=== PATIENT | female | born 1965 | race Native Hawaiian/Other Pacific Islander ===

== ENCOUNTER 2018-10-19 13:10 | Observation (INO) | payer OTHER, SELFPAY ==
--- NOTE | 2018-10-19 13:21 | Emergency Department Report ---
Blank Doc - Documentation Documentation: 53 y o female with new onset dx of DM was sent to ED from clinic today due antonina vated BP and chest pain NOT TAking any meds BP was 220/113 in clinic 185/95 in triage LAbs,ekg,cxr ACC eval
--- NOTE | 2018-10-19 14:15 | XRay Report ---
AP CHEST: HISTORY: chest pain AP view of the chest demonstrates a normal mediastinal and cardiac contour with clear lungs and normal bony and soft tissue structures. IMPRESSION: Unremarkable AP chest.
[2018-10-19 14:22] LABS: Basophils # (Auto) 0.1 K/mm3 (0.0-0.1); Basophils % (Auto) 0.6 % (0.0-1.8); Eosinophils # (Auto) 0.2 K/mm3 (0.0-0.4); Eosinophils % (Auto) 1.6 % (0.0-4.3); Hematocrit 43.4 % (30.3-42.9); Hemoglobin 14.9 gm/dl (10.1-14.3); Lymphocytes # (Auto) 3.9 K/mm3 (1.2-5.4); Mean Corpuscular HGB Conc 34 % (30-34); Mean Corpuscular Volume 89 fl (79-97); Monocytes # (Auto) 0.9 K/mm3 (0.0-0.8); Monocytes % (Auto) 7.9 % (0.0-7.3); Platelet Count 267 K/mm3 (140-440); Red Blood Count 4.89 M/mm3 (3.65-5.03)
[2018-10-19 14:40] LABS: BUN/Creatinine Ratio 27; Blood Urea Nitrogen 16 mg/dL (7-17); Calcium 9.7 mg/dL (8.4-10.2); Hemolysis Index 7
[2018-10-19] MEDS ORDERED: MORPHINE IV ONE (15:20)
[2018-10-19] MEDS ORDERED: TORADOL IV ONE (15:20)
[2018-10-19] MEDS ORDERED: PEPCID IV ONE (15:58)
[2018-10-19] MEDS ORDERED: ZOFRAN IV ONE (15:58)
[2018-10-19] MEDS ORDERED: NACL 0.9% 1000 ML 1,000 ML IV ONE (16:01)
[2018-10-19] MEDS ORDERED: PROTONIX PO ONE (16:02)
--- NOTE | 2018-10-19 16:02 | Emergency Department Report ---
ED Chest Pain HPI - General Chief Complaint: High BP Stated Complaint: HBP Time Seen by Provider: 10/19/18 13:18 Source: patient, family Mode of arrival: Ambulatory Limitations: Language Barrier - History of Present Illness Initial Comments: Patient is a 53-year-old female who has a history of hypertension diabetes both of which have been untreated who is presenting with chest pain. 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 Patient's family state that she has had chest pressure with some mild shortness of breath for the past 2 day s. Patient also has a history of chronic back pain which has been bothering her as well. Patient recently went to a chiropractor which did not help her symptoms. Patient describes the chest discomfort as a tight sensation in the chest. Patient has had several episodes of nausea and vomiting for the past 2 days as well. Other Symptoms: other (mid back pain). denies: acid taste in mouth, leg swelling, palpitations, burping - Related Data Allergies Allergy/AdvReac Type Severity Reaction Status Date / Time No Known Allergies Allergy Verified 10/19/18 13:20 Heart Score - HEART Score History: Moderately suspicious EKG: Non-specific Age: 45-65 Risk factors: 1-2 risk factors Troponin: < normal limit HEART Score: 4 ED Review of Systems ROS: Stated complaint: HBP Other details as noted in HPI Comment: All other systems reviewed and negative ED Past Medical Hx - Past Medical History Previous Medical History?: No - Surgical History Past Surgical History?: Yes Additional Surgical History: c-sections - Social History Smoking Status: Never Smoker ED Physical Exam - General Limitations: Language Barrier General appearance: alert, in distress (patient appears uncomfortable and is pacing in the room) - Head Head exam: Present: atraumatic, normocephalic - Eye Eye exam: Present: normal appearance, PERRL, EOMI - ENT ENT exam: Present: mucous membranes moist - Neck Neck exam: Present: normal inspection - Respiratory Respiratory exam: Present: normal lung sounds bilaterally. Absent: respiratory distress, wheezes, rales, rhonchi, stridor - Cardiovascular Cardiovascular Exam: Present: regular rate, normal rhythm. Absent: systolic murmur, diastolic murmur, rubs, gallop - GI/Abdominal GI/Abdominal exam: Present: soft, normal bowel sounds - Extremities Exam Extremities exam: Present: normal inspection - Back Exam Back exam: Present: normal inspection - Neurological Exam Neurological exam: Present: alert, oriented X3 - Psychiatric Psychiatric exam: Present: normal affect, normal mood - Skin Skin exam: Present: warm, dry, intact, normal color. Absent: rash ED Course Vital Signs 10/19/18 13:18 Temperature 98.8 F Pulse Rate 94 H Respiratory 18 Rate Blood Pressure 185/96 O2 Sat by Pulse 98 Oximetry CHIDI score - Chidi Score Age > 65: (0) No Aspirin use within the Past 7 Days: (0) No 3 or more CAD Risk Factors: (1) Yes 2 or more Angina events in past 24 hrs: (1) Yes Known CAD with more than 50% Stenosis: (0) No Elevated Cardiac Markers: (0) No ST Deviation Greater than 0.5mm: (0) No CHIDI Score: 2 ED Medical Decision Making - Lab Data Result diagrams: 10/19/18 13:58 10/19/18 13:58 Lab Results 10/19/18 10/19/18 Range/Units 13:58 13:58 WBC 11.7 H (4.5-11.0) K/mm3 RBC 4.89 (3.65-5.03) M/mm3 Hgb 14.9 H (10.1-14.3) gm/dl Hct 43.4 H (30.3-42.9) % MCV 89 (79-97) fl MCH 30 (28-32) pg MCHC 34 (30-34) % RDW 14.0 (13.2-15.2) % Plt Count 267 (140-440) K/mm3 Lymph % (Auto) 33.0 (13.4-35.0) % [place] % (Auto) 7.9 H (0.0-7.3) % Eos % (Auto) 1.6 (0.0-4.3) % Baso % (Auto) 0.6 (0.0-1.8) % Lymph # 3.9 (1.2-5.4) K/mm3 [place] # 0.9 H (0.0-0.8) K/mm3 Eos # 0.2 (0.0-0.4) K/mm3 Baso # 0.1 (0.0-0.1) K/mm3 Seg Neutrophils % 56.9 (40.0-70.0) % Seg Neutrophils # 6.7 (1.8-7.7) K/mm3 Sodium 129 L (137-145) mmol/L Potassium 4.0 (3.6-5.0) mmol/L Chloride 90.8 L (98-107) mmol/L Carbon Dioxide 27 (22-30) mmol/L Anion Gap 15 mmol/L BUN 16 (7-17) mg/dL Creatinine 0.6 L (0.7-1.2) mg/dL Estimated GFR > 60 ml/min BUN/Creatinine Ratio 27 % Glucose 244 H (65-100) mg/dL Calcium 9.7 (8.4-10.2) mg/dL Troponin T < 0.010 (0.00-0.029) ng/mL - EKG Data -: EKG Interpreted by Me EKG shows normal: sinus rhythm, axis, intervals, QRS complexes, ST-T waves Rate: normal - EKG Data Interpretation: normal EKG - Radiology Data Radiology results: report reviewed (CXR WNL) - Medical Decision Making Patient is a 53-year-old asthmatic female said untreated hypertension in diabetes. Patient was first diagnosed with diabetes barking 5 years ago but never received any type of treatment. Patient was sent in from a clinic because her blood pressure was 220/110. Patient has a negative troponin during her initial evaluation however her heart score is a 4. Patient does meet criteria for admission for further cardiac workup. She admitted to the hospitalist service at this time. Critical Care Time: Yes (30) Critical care attestation.: If time is entered above; I have spent that time in minutes in the direct care of this critically ill patient, excluding procedure time. ED Disposition Clinical Impression: Chest pain, Hypertensive urgency, malignant Disposition: DC-09 OP ADMIT IP TO THIS HOSP Is pt being admited?: Yes Does the pt Need Aspirin: No Condition: Stable Instructions: Chest Pain (ED) Referrals: ANDRA GLEASON MD [Primary Care Provider] - 3-5 Days Time of Disposition: 16:03
[2018-10-20] MEDS ORDERED: APRESOLINE IV PRN (02:54)
[2018-10-20] MEDS ORDERED: MORPHINE IV PRN (02:54)
[2018-10-20] MEDS ORDERED: SODIUM CHLORIDE FLUSH SYRINGE 10 ML IV PRN (05:32)
[2018-10-20] MEDS ORDERED: TYLENOL PO PRN (05:32)
--- NOTE | 2018-10-20 05:42 | History and Physical Report ---
History of Present Illness Date of examination: 10/19/18 Date of admission: 10/19/18 16:15 Chief complaint: Chest pain for 2 days History of present illness: 53-year-old female with history of hypertension and diabetes, noncompliant with some medications comes in for chest pain of 2 days duration. Chest pain is intermittent and about 6 on a scale of 1-10. Dull to sharp in nature. No exacerbating or precipitating factors. No diaphoresis or palpitations or shortness of breath. Patient also has history of chronic back pain for which she has been going to chiropractor but no improvement in her symptoms. No reflux symptoms CHIDI score 3 or more CAD Risk Factors: (1) Yes 2 or more Angina events in past 24 hrs: (1) Yes Total 2 - Chidi Score Age > 65: (0) No Aspirin use within the Past 7 Days: (0) No 3 or more CAD Risk Factors: (1) Yes 2 or more Angina events in past 24 hrs: (1) Yes Known CAD with more than 50% Stenosis: (0) No Elevated Cardiac Markers: (0) No ST Deviation Greater than 0.5mm: (0) No CHIDI Score: 2 Past Medical History Hypertension Diabetes Surgical History Past Surgical History?: Yes Additional Surgical History: c-sections Social History Smoking Status: Never Smoker Family history Htn Review of Systems ROS: Stated complaint: HBP Other details as noted in HPI Comment: All other systems reviewed and negative Medications and Allergies Allergies Allergy/AdvReac Type Severity Reaction Status Date / Time No Known Allergies Allergy Verified 10/19/18 13:20 Home Medications Medication Instructions Recorded Confirmed Last Taken Type No Known Home Medications [No 10/20/18 10/20/18 Unknown History Reported Home Medications] Active Meds: Active Medications Acetaminophen (Tylenol) 650 mg PO Q4H PRN PRN Reason: Pain MILD(1-3)/Fever >100.5/HARO Famotidine (Pepcid) 20 mg PO BID DARIANA Hydralazine HCl (Apresoline) 10 mg IV Q4H PRN PRN Reason: Hypertension Last Admin: 10/20/18 03:34 Dose: 10 mg Documented by: Sodium Chloride (Nacl 0.9% 1000 Ml) 1,000 mls @ 75 mls/hr IV DIRECT DARIANA Insulin Human Lispro (Humalog) 0 unit SUB-Q ACHS DARIANA; Protocol Morphine Sulfate (Morphine) 2 mg IV Q6H PRN PRN Reason: Pain, Moderate (4-6) Last Admin: 10/20/18 03:34 Dose: 2 mg Documented by: Ondansetron HCl (Zofran) 4 mg IV Q8H PRN PRN Reason: Nausea And Vomiting Oxycodone/Acetaminophen (Percocet 5/325) 1 tab PO Q6H PRN PRN Reason: Pain, Moderate (4-6) Sodium Chloride (Sodium Chloride Flush Syringe 10 Ml) 10 ml IV BID DARIANA Sodium Chloride (Sodium Chloride Flush Syringe 10 Ml) 10 ml IV PRN PRN PRN Reason: LINE FLUSH Exam - Constitutional Vitals: Temp Pulse Resp BP Pulse Ox 98.0 F 83 18 134/71 97 10/20/18 04:57 10/20/18 04:57 10/20/18 04:57 10/20/18 04:57 10/20/18 04:57 General appearance: Present: no acute distress, well-nourished - EENT Eyes: Present: PERRL ENT: hearing intact, clear oral mucosa - Neck Neck: Present: supple, normal ROM - Respiratory Respiratory effort: normal Respiratory: bilateral: CTA - Cardiovascular Heart rate: 78 Rhythm: regular Heart Sounds: Present: S1 & S2. Absent: rub, click - Extremities Extremities: no ischemia, pulses intact, pulses symmetrical, No edema Peripheral Pulses: within normal limits - Abdominal General gastrointestinal: Present: soft, non-tender, non-distended, normal bowel sounds Female genitourinary: Present: normal - Rectal Rectal Exam: deferred - Integumentary Integumentary: Present: clear, warm, dry - Musculoskeletal Musculoskeletal: gait normal, strength equal bilaterally - Psychiatric Psychiatric: appropriate mood/affect, intact judgment & insight - Neurologic Neurologic: CNII-XII intact, moves all extremities - Allied Health Allied health notes reviewed: nursing, case management Results - Labs CBC & Chem 7: 10/19/18 13:58 10/19/18 13:58 Labs: Laboratory Last Values WBC 11.7 K/mm3 (4.5-11.0) H 10/19/18 13:58 RBC 4.89 M/mm3 (3.65-5.03) 10/19/18 13:58 Hgb 14.9 gm/dl (10.1-14.3) H 10/19/18 13:58 Hct 43.4 % (30.3-42.9) H 10/19/18 13:58 MCV 89 fl (79-97) 10/19/18 13:58 MCH 30 pg (28-32) 10/19/18 13:58 MCHC 34 % (30-34) 10/19/18 13:58 RDW 14.0 % (13.2-15.2) 10/19/18 13:58 Plt Count 267 K/mm3 (140-440) 10/19/18 13:58 Lymph % (Auto) 33.0 % (13.4-35.0) 10/19/18 13:58 [place] % (Auto) 7.9 % (0.0-7.3) H 10/19/18 13:58 Eos % (Auto) 1.6 % (0.0-4.3) 10/19/18 13:58 Baso % (Auto) 0.6 % (0.0-1.8) 10/19/18 13:58 Lymph # 3.9 K/mm3 (1.2-5.4) 10/19/18 13:58 [place] # 0.9 K/mm3 (0.0-0.8) H 10/19/18 13:58 Eos # 0.2 K/mm3 (0.0-0.4) 10/19/18 13:58 Baso # 0.1 K/mm3 (0.0-0.1) 10/19/18 13:58 Seg Neutrophils % 56.9 % (40.0-70.0) 10/19/18 13:58 Seg Neutrophils # 6.7 K/mm3 (1.8-7.7) 10/19/18 13:58 351.37 ng/mlDDU (0-234) H 10/19/18 15:54 Sodium 129 mmol/L (137-145) L 10/19/18 13:58 Potassium 4.0 mmol/L (3.6-5.0) 10/19/18 13:58 Chloride 90.8 mmol/L (98-107) L 10/19/18 13:58 Carbon Dioxide 27 mmol/L (22-30) 10/19/18 13:58 15 mmol/L 10/19/18 13:58 BUN 16 mg/dL (7-17) 10/19/18 13:58 0.6 mg/dL (0.7-1.2) L 10/19/18 13:58 Estimated GFR > 60 ml/min 10/19/18 13:58 27 % 10/19/18 13:58 Glucose 244 mg/dL (65-100) H 10/19/18 13:58 Calcium 9.7 mg/dL (8.4-10.2) 10/19/18 13:58 < 0.010 ng/mL (0.00-0.029) 10/19/18 19:30 - Imaging and Cardiology EKG: report reviewed Chest x-ray: report reviewed (NAF) Imaging and Cardiology: EKG Data EKG Interpreted by Me EKG shows normal: sinus rhythm, axis, intervals, QRS complexes, ST-T waves Rate: normal EKG Data Interpretation: normal EKG Assessment and Plan Advance Directives: Yes (Full code) VTE prophylaxis?: Chemical Plan of care discussed with patient/family: Yes - Patient Problems (1) Hypertensive urgency, malignant Current Visit: Yes Status: Acute Plan to address problem: Patient initiated on losartan and amlodipine IV hydralazine given Hydralazine IV when necessary every 3 hours for systolic more than 160 and diastolic more than 100. (2) Hyponatremia Current Visit: Yes Status: Acute Plan to address problem: IV normal saline for now Repeat sodium levels (3) Chest pain Current Visit: Yes Status: Acute Qualifiers: Chest pain type: unspecified Qualified Code(s): R07.9 - Chest pain, unspecified Plan to address problem: Chest pain and rule out [place] protocol Serial troponins Exercise stress test in the morning GERD in the differential diagnosis (4) Type 2 diabetes mellitus Current Visit: Yes Status: Chronic Qualifiers: Diabetes mellitus long winder tender insulin use: without assisted use Plan to address problem: Patient initiated on metformin and glimepiride 1 mg by mouth daily Primary team to teach her about diabetes and the importance of compliance (5) DVT prophylaxis Current Visit: Yes Status: Acute Plan to address problem: On Lovenox and GI prophylaxis
[2018-10-20] MEDS: COZAAR PO SCH ×2 (06:11→12:53)
[2018-10-20] MEDS: AMARYL PO SCH (08:01)
[2018-10-20] MEDS: HumaLOG SUB-Q SCH ×4 (08:01→22:23)
[2018-10-20] MEDS: GLUCOPHAGE PO SCH ×2 (08:01→18:12)
[2018-10-20] MEDS ORDERED: LEXISCAN IV ONE ×2 (11:12→11:19)
[2018-10-20] MEDS: ZOFRAN IV PRN ×2 (11:41→13:08)
[2018-10-20] MEDS ORDERED: ZOFRAN ONE (11:41)
--- NOTE | 2018-10-20 11:50 | Progress Note ---
Assessment and Plan Assessment and plan: Chest pain. Continue chest pain protocol. EKG and cardiac isoenzymes are negative. Follow-up Lexiscan results. Also given her complaints of associated back pain and elevated d-dimer, we will obtain CT of the chest. Elevated d-dimer. As above. Type 2 diabetes mellitus. Patient initiated on metformin and glimepiride 1 mg by mouth daily Hyponatremia. Continue IV fluid hydration with normal saline. History Interval history: 53-year-old female with history of hypertension and diabetes, noncompliant with some medications comes in for chest pain of 2 days duration. Chest pain is intermittent and about 6 on a scale of 1-10. Dull to sharp in nature. No exacerbating or precipitating factors. No diaphoresis or palpitations or shortness of breath. Patient also has history of chronic back pain for which she has been going to chiropractor but no improvement in her symptoms. No reflux symptoms No new issues overnight. Hospitalist Physical - Constitutional Vitals: Temp Pulse Resp BP Pulse Ox 97.7 F 81 14 126/63 97 10/20/18 08:21 10/20/18 10:00 10/20/18 08:21 10/20/18 08:21 10/20/18 08:21 General appearance: Present: no acute distress, well-nourished - EENT Eyes: Present: PERRL, EOM intact ENT: hearing intact, clear oral mucosa, dentition normal - Neck Neck: Present: supple, normal ROM - Respiratory Respiratory effort: normal Respiratory: bilateral: CTA - Cardiovascular Rhythm: regular Heart Sounds: Present: S1 & S2. Absent: gallop, rub - Extremities Extremities: no ischemia, No edema, Full ROM - Abdominal General gastrointestinal: soft, non-tender, non-distended, normal bowel sounds - Integumentary Integumentary: Present: clear, warm, dry - Neurologic Neurologic: CNII-XII intact, moves all extremities Results - Labs CBC & Chem 7: 10/19/18 13:58 10/19/18 13:58 Labs: Laboratory Last Values WBC 11.7 K/mm3 (4.5-11.0) H 10/19/18 13:58 RBC 4.89 M/mm3 (3.65-5.03) 10/19/18 13:58 Hgb 14.9 gm/dl (10.1-14.3) H 10/19/18 13:58 Hct 43.4 % (30.3-42.9) H 10/19/18 13:58 MCV 89 fl (79-97) 10/19/18 13:58 MCH 30 pg (28-32) 10/19/18 13:58 MCHC 34 % (30-34) 10/19/18 13:58 RDW 14.0 % (13.2-15.2) 10/19/18 13:58 Plt Count 267 K/mm3 (140-440) 10/19/18 13:58 Lymph % (Auto) 33.0 % (13.4-35.0) 10/19/18 13:58 [place] % (Auto) 7.9 % (0.0-7.3) H 10/19/18 13:58 Eos % (Auto) 1.6 % (0.0-4.3) 10/19/18 13:58 Baso % (Auto) 0.6 % (0.0-1.8) 10/19/18 13:58 Lymph # 3.9 K/mm3 (1.2-5.4) 10/19/18 13:58 Keith # 0.9 K/mm3 (0.0-0.8) H 10/19/18 13:58 Eos # 0.2 K/mm3 (0.0-0.4) 10/19/18 13:58 Baso # 0.1 K/mm3 (0.0-0.1) 10/19/18 13:58 Seg Neutrophils % 56.9 % (40.0-70.0) 10/19/18 13:58 Seg Neutrophils # 6.7 K/mm3 (1.8-7.7) 10/19/18 13:58 351.37 ng/mlDDU (0-234) H 10/19/18 15:54 Sodium 129 mmol/L (137-145) L 10/19/18 13:58 Potassium 4.0 mmol/L (3.6-5.0) 10/19/18 13:58 Chloride 90.8 mmol/L (98-107) L 10/19/18 13:58 Carbon Dioxide 27 mmol/L (22-30) 10/19/18 13:58 15 mmol/L 10/19/18 13:58 BUN 16 mg/dL (7-17) 10/19/18 13:58 0.6 mg/dL (0.7-1.2) L 10/19/18 13:58 Estimated GFR > 60 ml/min 10/19/18 13:58 27 % 10/19/18 13:58 Glucose 244 mg/dL (65-100) H 10/19/18 13:58 9.5 % (4-6) H 10/20/18 06:58 Calcium 9.7 mg/dL (8.4-10.2) 10/19/18 13:58 < 0.010 ng/mL (0.00-0.029) 10/20/18 06:58 Active Medications - Current Medications Current Medications: Generic Name Dose Route Start Last Admin Trade Name Freq PRN Reason Stop Dose Admin Acetaminophen 650 mg 10/20/18 05:32 Tylenol PO Q4H PRN Pain MILD(1-3)/Fever >100.5/HARO Amlodipine Besylate 10 mg 10/20/18 10:00 Norvasc PO QDAY [facility] Famotidine 20 mg 10/20/18 10:00 Pepcid PO BID DARIANA Glimepiride 1 mg 10/20/18 08:00 10/20/18 08:01 Amaryl PO Not Given QDDIAB [facility] Hydralazine HCl 10 mg 10/20/18 02:54 10/20/18 03:34 Apresoline IV 10 mg Q4H PRN Administration Hypertension Sodium Chloride 1,000 mls @ 75 mls/hr 10/20/18 06:00 Nacl 0.9% 1000 Ml IV DIRECT [facility] Insulin Human Lispro 0 unit 10/20/18 07:30 10/20/18 08:01 Humalog SUB-Q Not Given ACHS [facility] Protocol Losartan Potassium 100 mg 10/20/18 06:00 10/20/18 06:11 Cozaar PO 100 mg QDAY DARIANA Administration Metformin HCl 500 mg 10/20/18 08:00 10/20/18 08:01 Glucophage PO Not Given BIDDIAB [facility] Morphine Sulfate 2 mg 10/20/18 02:54 10/20/18 03:34 Morphine IV 2 mg Q6H PRN Administration Pain, Moderate (4-6) Ondansetron HCl 4 mg 10/20/18 05:32 10/20/18 11:41 Zofran IV 4 mg Q8H PRN Administration Nausea And Vomiting Oxycodone/Acetaminophen 1 tab 10/20/18 05:32 Percocet 5/325 PO Q6H PRN Pain, Moderate (4-6) Sodium Chloride 10 ml 10/20/18 10:00 Sodium Chloride Flush Syringe 10 Ml IV BID DARIANA Sodium Chloride 10 ml 10/20/18 05:32 Sodium Chloride Flush Syringe 10 Ml IV PRN PRN LINE FLUSH
[2018-10-20] MEDS: NORVASC PO SCH (12:54)
[2018-10-20] MEDS: PEPCID PO SCH ×2 (12:55→22:22)
[2018-10-20] MEDS: SODIUM CHLORIDE FLUSH SYRINGE 10 ML IV SCH (12:55)
[2018-10-20] MEDS: NACL 0.9% 1000 ML 1,000 ML IV SCH (12:56)
--- NOTE | 2018-10-20 19:55 | Cat Scan Report ---
PROCEDURE: CT ANGIO CHEST TECHNIQUE: Computerized tomographic angiography of the chest was performed after the IV injection of iodinated nonionic contrast including image processing. The image data was postprocessed using 2-di mensional multiplanar reformatted (MPR) and 3-dimensional (MIP and/or volume rendered) techniques. Au tomated exposure control, adjustment of mA and/or kV according to patient size, or iterative reconstr uction dose optimization techniques were utilized. CT DOSE LENGTH PRODUCT: 392.3 mGycm HISTORY: elevated d-dimer COMPARISONS: None . FINDINGS: Heart and pericardium: Normal. Thoracic aorta: Normal. Pulmonary vasculature: Normal. Lymph nodes: No enlarged thoracic lymph nodes. Lungs: Normal. Pleural space: No effusion, thickening, or pneumothorax. Musculoskeletal structures: No significant abnormality. Upper abdominal structures: No significant abnormality. IMPRESSION: No acute abnormality identified. No CT evidence for acute pulmonary embolus. This document is electronically signed by Shar Victor MD., October 20 2018 07:53:31 PM ET
[2018-10-20] MEDS: PERCOCET 5/325 PO PRN (22:22)
[2018-10-21] MEDS: SODIUM CHLORIDE FLUSH SYRINGE 10 ML IV SCH ×2 (01:49→09:40)
[2018-10-21] MEDS: NACL 0.9% 1000 ML 1,000 ML IV SCH (03:29)
[2018-10-21 06:27] LABS: Basophils # (Auto) 0.1 K/mm3 (0.0-0.1); Basophils % (Auto) 0.8 % (0.0-1.8); Eosinophils # (Auto) 0.2 K/mm3 (0.0-0.4); Eosinophils % (Auto) 2.6 % (0.0-4.3); Hematocrit 39.6 % (30.3-42.9); Hemoglobin 13.8 gm/dl (10.1-14.3); Lymphocytes # (Auto) 2.9 K/mm3 (1.2-5.4); Lymphocytes % (Auto) 29.5 % (13.4-35.0); Mean Corpuscular HGB Conc 35 % (30-34); Mean Corpuscular Volume 89 fl (79-97); Monocytes # (Auto) 0.8 K/mm3 (0.0-0.8); Monocytes % (Auto) 8.7 % (0.0-7.3); Platelet Count 225 K/mm3 (140-440); Red Blood Count 4.44 M/mm3 (3.65-5.03); Red Cell Distribution Width 13.9 % (13.2-15.2)
[2018-10-21 06:49] LABS: Alanine Aminotransferase 43 units/L (7-56); Albumin 3.7 g/dL (3.9-5); BUN/Creatinine Ratio 34; Blood Urea Nitrogen 17 mg/dL (7-17); Calcium 9.3 mg/dL (8.4-10.2); Hemolysis Index 7
[2018-10-21] MEDS: PERCOCET 5/325 PO PRN (08:24)
[2018-10-21] MEDS: HumaLOG SUB-Q SCH (08:25)
--- NOTE | 2018-10-21 09:04 | Discharge Summary ---
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 Chest pain was intermittent and about 6 on a scale of 1-10. Dull to sharp in nature. No exacerbating or precipitating factors. No diaphoresis or palpitations or shortness of breath. Patient also has history of chronic back pain for which she has been going to chiropractor but no improvement in her symptoms. No reflux symptoms. The patient was admitted with diagnosis of chest pain, hyponatremia, accelerated hypertension and uncontrolled diabetes mellitus type 2. Patient was placed on the chest pain protocol and was noted to have negative cardiac isoenzymes and EKG. Patient was noted to have elevated d-dimer and underwent CT of the chest that was found to be negative for PE with no other acute findings. Myocardial perfusion scan was negative for ischemia. Etiology of chest pain likely related to GERD. Dedicated discharge time 32 minutes. Disposition: - TO HOME OR SELFCARE Time spent for discharge: 32 - Discharge Diagnoses (1) Chest pain Status: Acute Qualifiers: Chest pain type: unspecified Qualified Code(s): R07.9 - Chest pain, unspecified (2) Hypertensive urgency, malignant Status: Acute (3) Hyponatremia Status: Acute (4) Type 2 diabetes mellitus Status: Chronic Qualifiers: Diabetes mellitus group home insulin use: without group home use Core Measure Documentation - Palliative Care Palliative Care/ Comfort Measures: Not Applicable - Core Measures Any of the following diagnoses?: none Exam - Constitutional Vitals: Temp Pulse Resp BP Pulse Ox 97.5 F L 72 18 171/73 98 10/21/18 04:30 10/21/18 04:29 10/21/18 04:29 10/21/18 04:29 10/21/18 04:29 General appearance: Present: no acute distress, well-nourished - EENT Eyes: Present: PERRL ENT: hearing intact, clear oral mucosa - Neck Neck: Present: supple, normal ROM - Respiratory Respiratory effort: normal Respiratory: bilateral: CTA - Cardiovascular Heart Sounds: Present: S1 & S2. Absent: rub, click - Extremities Extremities: pulses symmetrical, No edema Peripheral Pulses: within normal limits - Abdominal General gastrointestinal: Present: soft, non-tender, non-distended, normal bowel sounds Female genitourinary: Present: normal - Integumentary Integumentary: Present: clear, warm, dry - Musculoskeletal Musculoskeletal: gait normal, strength equal bilaterally - Psychiatric Psychiatric: appropriate mood/affect, intact judgment & insight - Neurologic Neurologic: CNII-XII intact, moves all extremities Plan Activity: no restrictions Weight Bearing Status: Full Weight Bearing Diet: diabetic Follow up with: [facility] T[facility]OR [Primary Care Provider] - 3-5 Days Prescriptions: Glimepiride [Amaryl] 1 mg PO QDDIAB 30 Days tablet Losartan [Cozaar] 100 mg PO QDAY #30 tablet metFORMIN [Glucophage] 500 mg PO BIDDIAB #60 tablet amLODIPine [Norvasc] 10 mg PO QDAY #30 tablet oxyCODONE /ACETAMINOPHEN [Percocet 5/325 mg] 1 tab PO Q6H PRN #8 tablet PRN Reason: Pain, Moderate (4-6)
[2018-10-21 09:25] VITALS: BP 165/68
[2018-10-21] MEDS: AMARYL PO SCH (09:38)
[2018-10-21] MEDS: NORVASC PO SCH (09:38)
[2018-10-21] MEDS: GLUCOPHAGE PO SCH (09:39)
[2018-10-21] MEDS: PEPCID PO SCH (09:39)
[2018-10-21] MEDS: COZAAR PO SCH (09:39)
--- NOTE | 2018-10-23 00:53 | Treadmill Report ---
NUCLEAR MYOCARDIAL PERFUSION IMAGING REPORT Nuclear myocardial imaging perfusion was performed using 1-day protocol. Rest images followed by post-stress images and post-stress gated images were obtained using technetium pyrophosphate sestamibi on both occasions. Perfusion images during rest and post-stress and also gated studies post-stress were evaluated. Myocardial perfusion was found to be normal post-stress and also during rest. Left ventricular size was found to be normal with normal left ventricular wall thickening and motion with a calculated ejection fraction of 67% post-stress. Transient ischemic dilation ratio was found to be 1.34. FINAL IMPRESSION: 1. Normal perfusion noted with no evidence of ischemia. 2. Normal left ventricular function was calculated on post-stress images with ejection fraction of 67%. 3. This was found to be low risk study prognostically. JOB# [id number] JABARI/TITO
== END 2018-10-21 11:25 | disposition home or self-care (01) ==
LOC: ED 13:10 → 4A 16:15
PROVIDERS: ADMIT Internal Medicine; ATTEND Hospitalist
DX: R07.89 Other chest pain (principal); I16.0 Hypertensive urgency; E87.1 Hypo-osmolality and hyponatremia; E11.9 Type 2 diabetes mellitus without complications; I10 Essential (primary) hypertension; M54.9 Dorsalgia, unspecified; G89.29 Other chronic pain; R11.2 Nausea with vomiting, unspecified; Z98.890 Other specified postprocedural states
CPT/HCPCS: 36415; 71045; 71275; 78452; 80048; 80053; 82962; 83036; 84484; 85025; 85379; 93005; 93010; 93017; 96361; 96372; 96374; 96375; 96376; 99291; A9502; G0378; J0360; J1885; J2270; J2405; J2785; J7030; Q9967; J1815

== ENCOUNTER 2018-10-23 14:11 | Emergency (ER) | payer OTHER, SELFPAY ==
--- NOTE | 2018-10-23 14:37 | Emergency Department Report ---
Blank Doc - Documentation Documentation: 53 y/o female presents to ED with continued abdominal pain and was at her clinic today when advised to return to ED for bowel ostruction evaluation. She was seen here 2 day s ago for chest symptoms and CTA was obtained. Plan: Acute abdominal xray and Labs. further test may be necessary to determine the cause of these symptoms and will be left up to the ED provider managing this patients care
[2018-10-23 15:35] LABS: Alanine Aminotransferase 50 units/L (7-56); Albumin 4.1 g/dL (3.9-5); BUN/Creatinine Ratio 38; Blood Urea Nitrogen 19 mg/dL (7-17); Calcium 9.4 mg/dL (8.4-10.2); Hemolysis Index 5
[2018-10-23 15:52] LABS: Basophils % (Auto) 0.3 % (0.0-1.8); Eosinophils # (Auto) 0.1 K/mm3 (0.0-0.4); Eosinophils % (Auto) 1.2 % (0.0-4.3); Hematocrit 41.3 % (30.3-42.9); Hemoglobin 14.5 gm/dl (10.1-14.3); Lymphocytes # (Auto) 3.3 K/mm3 (1.2-5.4); Mean Corpuscular HGB Conc 35 % (30-34); Mean Corpuscular Volume 88 fl (79-97); Monocytes % (Auto) 7.8 % (0.0-7.3); Platelet Count 277 K/mm3 (140-440); Red Blood Count 4.69 M/mm3 (3.65-5.03); Red Cell Distribution Width 13.9 % (13.2-15.2)
--- NOTE | 2018-10-23 16:02 | XRay Report ---
PROCEDURE: XR ABD SERIES W CXR 1V TECHNIQUE: Acute abdominal series including AP chest and supine/upright abdominal views HISTORY: constipation abd pain COMPARISON: None FINDINGS: Chest radiograph demonstrates no cardiomegaly, vascular congestion, infiltrate, pleural effusion or p neumothorax. There is no free air. Bowel gas pattern is nonspecific and nonobstructive. There is a fairly prominen t amount of stool present, mostly in the right colon and transverse colon. Correlate for constipation . There are a few air-fluid levels in the right colon. There is also some gas in normal caliber small bowel. No suspicious calcifications are seen. IMPRESSION: Unremarkable chest radiograph Nonspecific, nonobstructive abdomen, as above. Fairly prominent amount of stool which could reflect c onstipation. There are no findings of impaction, however. This document is electronically signed by Liss Goode MD., October 23 2018 04:00:21 PM ET
--- NOTE | 2018-10-23 16:29 | Emergency Department Report ---
ED General Adult HPI - General Chief complaint: Nausea/Vomiting/Diarrhea Stated complaint: BOWL PROBLEMS Time Seen by Provider: 10/23/18 14:35 Source: patient, RN notes reviewed, old records reviewed Mode of arrival: Wheelchair Limitations: Language Barrier, Other (the patient is a poor historian. The patient requires multiple repeat questions and redirection's, even using a phone privacy officer.) - History of Present Illness Initial comments: central office repairer: [id number] Past medical history: Distant history of , diabetes, hypertension. Patient recently admitted to this hospital for chest pain. Had a negative cardiac stress test, and negative CT scan of the chest. This is a 53-year-old female. The patient is not known to this provider p reviously. The patient is sent to the emergency room by local outpatient clinic to rule out small bowel obstruction. The patient does not know if she has a primary care doctor. The patient presents with epigastric and bilateral flank abdominal pain and cramping for almost 1 week. It is associated with nonbloody, nonbilious emesis. Last bowel movement was 4 or 5 days ago. Denies headache, ocular discharge, loss of consciousness, dental pain, admits positive sore throat from nausea and vomiting, denies urinary symptoms, denies skin rash, skin lesions, and arthralgias. Her symptoms are intermittent, did not radiate anywhere, and she does not believe they have exacerbating or relieving factors. -: Gradual Location: abdomen Radiation: non-radiation Quality: aching Consistency: intermittent Improves with: other Worsens with: other - Related Data Previous Rx's Medication Instructions Recorded Last Taken Type Glimepiride [Amaryl] 1 mg PO QDDIAB 30 Days tablet 10/21/18 Unknown Rx Losartan [Cozaar] 100 mg PO QDAY #30 tablet 10/21/18 Unknown Rx amLODIPine [Norvasc] 10 mg PO QDAY #30 tablet 10/21/18 Unknown Rx metFORMIN [Glucophage] 500 mg PO BIDDIAB #60 tablet 10/21/18 Unknown Rx oxyCODONE /ACETAMINOPHEN [Percocet 1 tab PO Q6H PRN #8 tablet 10/21/18 Unknown Rx 5/325 mg] Famotidine [Pepcid] 20 mg PO BID #30 tablet 10/23/18 Unknown Rx Metoclopramide [Reglan] 10 mg PO QID PRN #30 tablet 10/23/18 Unknown Rx Nitrofurantoin [place]/M-Cryst 100 mg PO Q12HR #14 capsule 10/23/18 Unknown Rx [Macrobid CAP] Allergies Allergy/AdvReac Type Severity Reaction Status Date / Time No Known Allergies Allergy Verified 10/19/18 13:20 ED Review of Systems ROS: Stated complaint: BOWL PROBLEMS Other details as noted in HPI Constitutional: denies: fever Eyes: denies: eye discharge ENT: throat pain. denies: dental pain Respiratory: denies: wheezing Cardiovascular: denies: chest pain Gastrointestinal: abdominal pain, nausea, vomiting, constipation Genitourinary: denies: dysuria Musculoskeletal: denies: myalgia Skin: denies: lesions Neurological: denies: weakness Hematological/Lymphatic: denies: easy bleeding ED Past Medical Hx - Past Medical History Hx Hypertension: Yes Hx Congestive Heart Failure: No Hx Diabetes: Yes Hx Asthma: No Hx COPD: No - Surgical History Additional Surgical History: c-sections - Social History Smoking Status: Never Smoker Substance Use Type: None - Medications Home Medications: Home Medications Medication Instructions Recorded Confirmed Last Taken Type Glimepiride [Amaryl] 1 mg PO QDDIAB 30 Days tablet 10/21/18 Unknown Rx Losartan [Cozaar] 100 mg PO QDAY #30 tablet 10/21/18 Unknown Rx amLODIPine [Norvasc] 10 mg PO QDAY #30 tablet 10/21/18 Unknown Rx metFORMIN [Glucophage] 500 mg PO BIDDIAB #60 tablet 10/21/18 Unknown Rx oxyCODONE /ACETAMINOPHEN [Percocet 1 tab PO Q6H PRN #8 tablet 10/21/18 Unknown Rx 5/325 mg] Famotidine [Pepcid] 20 mg PO BID #30 tablet 10/23/18 Unknown Rx Metoclopramide [Reglan] 10 mg PO QID PRN #30 tablet 10/23/18 Unknown Rx Nitrofurantoin [place]/M-Cryst 100 mg PO Q12HR #14 capsule 10/23/18 Unknown Rx [Macrobid CAP] ED Physical Exam - General Limitations: Language Barrier General appearance: alert, in no apparent distress - Head Head exam: Present: atraumatic, normocephalic - Eye Eye exam: Present: normal appearance, EOMI. Absent: nystagmus - ENT ENT exam: Present: normal exam, normal orophraynx, mucous membranes moist, normal external ear exam - Neck Neck exam: Present: normal inspection, full ROM. Absent: tenderness, meningismus - Respiratory Respiratory exam: Present: normal lung sounds bilaterally. Absent: respiratory distress - Cardiovascular Cardiovascular Exam: Present: regular rate, normal rhythm, normal heart sounds. Absent: bradycardia, tachycardia, irregular rhythm, systolic murmur, diastolic murmur, rubs, gallop - GI/Abdominal GI/Abdominal exam: Present: soft. Absent: distended, tenderness, guarding, rebound, rigid, pulsatile mass - Extremities Exam Extremities exam: Present: normal inspection, full ROM, other (2+ pulses noted in the bilateral upper, lower extremities. Compartments soft. No long bony tenderness. The pelvis is stable.). Absent: pedal edema, joint swelling, calf tenderness - Back Exam Back exam: Present: normal inspection, full ROM. Absent: tenderness, CVA tenderness (R), CVA tenderness (L), paraspinal tenderness, vertebral tenderness - Neurological Exam Neurological exam: Present: alert, other (Extraocular movements intact. Tongue midline. No facial droop. Facial sensation intact to light touch in the V1, V2, V3 distribution bilaterally. 5 and 5 strength in 4 extremities.. Sensation is intact to light touch in 4 extremities.). Absent: motor sensory deficit - Psychiatric Psychiatric exam: Present: flat affect - Skin Skin exam: Present: warm, dry, intact, normal color. Absent: rash ED Course Vital Signs 10/23/18 10/23/18 10/23/18 15:09 17:00 18:00 Temperature 98.3 F Pulse Rate 83 65 83 Respiratory 16 17 18 Rate Blood Pressure 156/75 Blood Pressure 160/82 144/75 [Right] O2 Sat by Pulse 98 100 100 Oximetry 10/23/18 19:32 Temperature 97.8 F Pulse Rate 86 Respiratory 16 Rate Blood Pressure Blood Pressure 160/80 [Right] O2 Sat by Pulse 98 Oximetry - Reevaluation(s) Reevaluation #1: 10/23/18 17:17 Differential diagnosis, including but not limited to: Dehydration, obstruction, ileus, volvulus, gastroparesis Assessment and plan: 53-year-old female, history of diabetes, distant history of section, with reported abdominal pain, nausea and vomiting. Found to be hyponatremic, possibly hypovolemic hyponatremia. She appears comfortable. CT scan of the abdomen and pelvis has been ordered and is pending. We will treat her symptoms. We will reassess after initial data points have resulted. Reevaluation #2: 10/23/18 20:02 No active vomiting. Belly soft on repeat exam. Urinalysis reviewed and appreciated. Suspect hypovolemic hyponatremia, likely secondary to undiagnosed gastroparesis. The patient was to follow up with an outpatient primary care doctor or base filler for further evaluation for presumed gastroparesis. We will cover empirically with Macrobid given urinalysis. The patient can follow-up as an outpatient for further testing to evaluate AM cortisol and acth stimulation tests ED Medical Decision Making - Lab Data Result diagrams: 10/23/18 15:02 10/23/18 15:02 Vital Signs 10/23/18 15:09 Temperature 98.3 F Pulse Rate 83 Respiratory 16 Rate Blood Pressure 156/75 O2 Sat by Pulse 98 Oximetry Lab Results 10/23/18 10/23/18 Range/Units 15:02 15:02 WBC 12.3 H (4.5-11.0) K/mm3 RBC 4.69 (3.65-5.03) M/mm3 Hgb 14.5 H (10.1-14.3) gm/dl Hct 41.3 (30.3-42.9) % MCV 88 (79-97) fl MCH 31 (28-32) pg MCHC 35 H (30-34) % RDW 13.9 (13.2-15.2) % Plt Count 277 (140-440) K/mm3 Lymph % (Auto) 27.0 (13.4-35.0) % [place] % (Auto) 7.8 H (0.0-7.3) % Eos % (Auto) 1.2 (0.0-4.3) % Baso % (Auto) 0.3 (0.0-1.8) % Lymph # 3.3 (1.2-5.4) K/mm3 [place] # 1.0 H (0.0-0.8) K/mm3 Eos # 0.1 (0.0-0.4) K/mm3 Baso # 0.0 (0.0-0.1) K/mm3 Seg Neutrophils % 63.7 (40.0-70.0) % Seg Neutrophils # 7.8 H (1.8-7.7) K/mm3 Sodium 126 L (137-145) mmol/L Potassium 3.6 (3.6-5.0) mmol/L Chloride 89.7 L (98-107) mmol/L Carbon Dioxide 24 (22-30) mmol/L Anion Gap 16 mmol/L BUN 19 H (7-17) mg/dL Creatinine 0.5 L (0.7-1.2) mg/dL Estimated GFR > 60 ml/min BUN/Creatinine Ratio 38 % Glucose 154 H (65-100) mg/dL Calcium 9.4 (8.4-10.2) mg/dL Total Bilirubin 0.80 (0.1-1.2) mg/dL AST 35 (5-40) units/L ALT 50 (7-56) units/L Alkaline Phosphatase 147 H (35-129) units/L Total Protein 8.3 H (6.3-8.2) g/dL Albumin 4.1 (3.9-5) g/dL Albumin/Globulin Ratio 1.0 % Lipase 56 (13-60) units/L - EKG Data -: EKG Interpreted by [place] EKG shows normal: sinus rhythm Rate: normal - EKG Data When compared to previous EKG there are: no significant change 10/23/18 17:52 This is a normal sinus rhythm, 82 bpm, normal axis, QTC prolonged, left ventricular hypertrophy, nonspecific ST depression, not having chest pain, this is an abnormal EKG. This EKG is not consistent with ST elevation myocardial infarction. It appears to be unchanged from prior EKG from 10/19/2018. - Radiology Data Radiology results: report reviewed, image reviewed Print Report Referring Physician: ISIS STEPHENS Patient Name: CINDY HENAO Date of : 1965 Sex: Female Report Date: 2018-10-23 Report Status: Finalized Findings [facility] [address] [place] [address] XRay Report Signed Patient: CINDY OCASIO MR #: [id number] : 1965 Acct:[id number] Age/Sex: 53 / F ADM Date: 10/23/18 Loc: ED Attending Dr: Ordering Physician: SONIDO LEE Date of Service: 10/23/18 Procedure(s): XR abd series w cxr 1V Accession Number(s): [id number] cc: SONIDO LEE Fluoro Time In Minutes: PROCEDURE: XR ABD SERIES W CXR 1V TECHNIQUE: Acute abdominal series including AP chest and supine/upright abdominal views HISTORY: constipation abd pain COMPARISON: None FINDINGS: Chest radiograph demonstrates no cardiomegaly, vascular congestion, infiltrate, pleural effusion or pneumothorax. There is no free air. Bowel gas pattern is nonspecific and nonobstructive. There is a fairly prominent amount of stool present, mostly in the right colon and transverse colon. Correlate for constipation. There are a few air-fluid levels in the right colon. There is also some gas in normal caliber small bowel. No suspicious calcifications are seen. IMPRESSION: Unremarkable chest radiograph Nonspecific, nonobstructive abdomen, as above. Fairly prominent amount of stool which could reflect constipation. There are no findings of impaction, however. This document is electronically signed by Liss Goode MD., October 23 2018 04:00:21 PM ET Transcribed By: [facility] Dictated By: LISS GOODE MD Electronically Authenticated By: LISS GOODE MD Signed Date/Time: 10/23/18 1602 Print Report Referring Physician: ABIGAIL BARBER Patient Name: CINDY HENAO Date of : 1965 Sex: Female Report Date: 2018-10-23 Report Status: [place] [address] Cat Scan Report Signed Patient: CINDY OCASIO MR #: [id number] : 1965 Acct:[id number] Age/Sex: 53 / F ADM Date: 10/23/18 Loc: ED Attending Dr: Ordering Physician: ABIGAIL BARBER MD Date of Service: 10/23/18 Procedure(s): CT abdomen pelvis w con Accession Number(s): [id number] cc: ABIGAIL BARBER MD PROCEDURE: CT ABDOMEN PELVIS W CON TECHNIQUE: Computerized axial tomography of the abdomen and pelvis was performed after the IV injection of iodinated nonionic contrast. CT DOSE LENGTH PRODUCT: 1660.6 mGycm HISTORY: abd pain n/v ? sbo COMPARISONS: None . FINDINGS: Lower Lung [place]: There is a small amount of dependent atelectasis. Lung bases otherwise are clear. Upper Abdomen: Liver density mildly diffusely decreased consistent with fatty infiltration. No discrete liver lesions are identified. The gallbladder is unremarkable. The adrenal glands, the pancreas and the spleen are unremarkable. Kidneys, Ureters and Urinary bladder: No abnormalities are seen. Retroperitoneum: Atherosclerotic changes are seen in the abdominal aorta. No aneurysm is visualized. Nonspecific subcentimeter lymph nodes are seen in the retroperitoneum. No pathologically enlarged lymph nodes are identified. Bowel: No focal bowel abnormalities are seen. No evidence of bowel obstruction, ascites or free intraperitoneal gas. The appendix is not visualized. There are no inflammatory changes seen in the right lower quadrant that would suggest appendicitis. Reproductive organs: Uterus and adnexa are unremarkable. Other: No acute bone abnormalities are identified. IMPRESSION: No evidence of bowel obstruction. Fatty infiltration of the liver. No other abnormalities are seen. This document is electronically signed by Anson Vinson MD., October 23 2018 07:36:28 PM ET Transcribed By: [facility] Dictated By: ANSON VINSON MD Electronically Authenticated By: ANSON VINSON MD Signed Date/Time: 10/23/181937 Critical care attestation.: If time is entered above; I have spent that time in minutes in the direct care of this critically ill patient, excluding procedure time. ED Disposition Clinical Impression: Hyponatremia, History of nausea and vomiting Disposition: DC-01 TO HOME OR SELFCARE Is pt being admited?: No Does the pt Need Aspirin: No Condition: Good Instructions: Acute Nausea and Vomiting (ED), Weight Management (ED) Additional Instructions: Do not take metformin medication for the next 48 hours. Take pain medication, nausea medication as needed/directed. Advance diet as tolerated, make certain to consume foods that are recommended for a diabetic diet. Patient may reference [place] diabetes [employer] website for diabetic diet recommendations. We suspect the patient likely has gastroparesis, secondary to underlying diabetes. Gastroparesis is a condition where intestines do not move his well, secondary to diabetes affecting the nerve supply of the intestines. Treatment for this typically involves modification of diet to improve diabetes, and decreased blood sugar levels. Patient should follow-up with an outpatient primary care doctor within the next week to have sodium level rechecked, and to evaluate morning cortisol, and ACTH stimulation test. Avoid consumption of heavy, spicy foods. Patient may follow up with a base filler or primary care doctor for evaluation for presumed gastroparesis within the next month. Return to the emergency room right away with new, worsening or different symptoms, or symptoms not present on the initial emergency room evaluation. No tome medicamentos con metformina roger las prximas 48 horas. Aldan medicamentos para el dolor, medicamentos para las nuseas segn sea necesario / indicado. Avance de la dieta segn lo tolerado, asegrese de consumir los alimentos que se recomiendan para joseph dieta para diabticos. El paciente puede consultar el sitio web de la [employer] [place] para obtener recomendaciones sobre dietas para diabticos. Sospechamos que el paciente probablemente tenga gastroparesia, secundaria a diabetes subyacente. La gastroparesia es joseph condicin en la que los intestinos no se mueven mikayla, bryon consecuencia de la diabetes que afecta el suministro de nervios de los intestinos. El tratamiento para esto generalmente implica la modificacin de la dieta para mejorar la diabetes y la disminucin de los niveles de azcar en la sandra. El paciente debe realizar un seguimiento con un mdico de atencin primaria ambulatoria dentro de la prxima semana para volver a controlar el nivel de sodio y evaluar el cortisol matutino y la prueba de estimulacin con ACTH. Evite el consumo de comidas pesadas y picantes. El paciente puede hacer un seguimiento con un gastroenterlogo o un mdico de atencin primaria para joseph evaluacin de presunta gastroparesia en el prximo mes. Regrese a la lizeth de emergencias de inmediato con sntomas nuevos, que empeoran o diferentes, o sntomas que no aparecen en la evaluacin inicial de la lizeth de emergencias. Referrals: [facility] [Provider Group] - 7-10 days [facility] [Provider Group] - 7-10 days Print Language: PAKISTANI
[2018-10-23] MEDS ORDERED: PEPCID IV ONE (17:09)
[2018-10-23] MEDS ORDERED: NACL 0.9% 1000 ML 1,000 ML IV ONE (17:09)
[2018-10-23] MEDS ORDERED: ZOFRAN IV ONE (17:09)
[2018-10-23 19:28] LABS: Creatinine,Urine 129.6 mg/dL (0.1-20.0)
[2018-10-23 19:33] LABS: Bilirubin,Urine NEG (Negative); Blood,Urine MOD (Negative); Color,Urine Yellow (Yellow); Mucus,Urine 2+ /HPF
--- NOTE | 2018-10-23 19:38 | Cat Scan Report ---
PROCEDURE: CT ABDOMEN PELVIS W CON TECHNIQUE: Computerized axial tomography of the abdomen and pelvis was performed after the IV inject ion of iodinated nonionic contrast. CT DOSE LENGTH PRODUCT: 1660.6 mGycm HISTORY: abd pain n/v ? sbo COMPARISONS: None . FINDINGS: Lower Lung [place]: There is a small amount of dependent atelectasis. Lung bases otherwise are clear. Upper Abdomen: Liver density mildly diffusely decreased consistent with fatty infiltration. No discr ete liver lesions are identified. The gallbladder is unremarkable. The adrenal glands, the pancreas a nd the spleen are unremarkable. Kidneys, Ureters and Urinary bladder: No abnormalities are seen. Retroperitoneum: Atherosclerotic changes are seen in the abdominal aorta. No aneurysm is visualized. Nonspecific subcentimeter lymph nodes are seen in the retroperitoneum. No pathologically enlarged ly mph nodes are identified. Bowel: No focal bowel abnormalities are seen. No evidence of bowel obstruction, ascites or free intr aperitoneal gas. The appendix is not visualized. There are no inflammatory changes seen in the right lower quadrant that would suggest appendicitis. Reproductive organs: Uterus and adnexa are unremarkable. Other: No acute bone abnormalities are identified. IMPRESSION: No evidence of bowel obstruction. Fatty infiltration of the liver. No other abnormalities are seen. This document is electronically signed by Anson Gandhi MD., October 23 2018 07:36:28 PM ET
[2018-10-23] MEDS ORDERED: TYLENOL PO ONE (20:08)
[2018-10-23] MEDS ORDERED: TYLENOL PR ONE (20:12)
[2018-10-23 20:31] LABS: Bilirubin,Urine NEG (Negative); Blood,Urine MOD (Negative); Color,Urine Yellow (Yellow); Mucus,Urine FEW /HPF; Urobilinogen,Urine < 2.0 mg/dL (<2.0)
[2018-10-23 20:56] VITALS: BP 150/89
== END 2018-10-23 20:37 | disposition home or self-care (01) ==
LOC: ED 14:11
DX: E87.1 Hypo-osmolality and hyponatremia (principal); I10 Essential (primary) hypertension; E11.9 Type 2 diabetes mellitus without complications; Z79.899 Other long term (current) drug therapy
CPT/HCPCS: 36415; 74022; 74177; 80053; 81001; 82140; 82550; 82570; 83690; 83735; 83935; 84300; 84443; 85025; 87086; 93005; 96361; 96374; 96375; 99285; J2405; J7030; Q9967